=== PATIENT | female | born 1990 | race Two or more races ===

== ENCOUNTER 2019-07-12 12:15 | Inpatient (IN) | payer MEDICAID, OTHER ==
[~2019-07-12] VITALS: Ht 162.6 cm; Wt 82.6 kg
[2019-07-12] MEDS ORDERED: METF-960 PO (12:44)
[2019-07-12] MEDS ORDERED: LISI-661 PO (12:44)
[2019-07-12] MEDS ORDERED: EMPA25TA PO (12:44)
[2019-07-12] MEDS ORDERED: BUPR100 PO (12:44)
[2019-07-12] MEDS ORDERED: SERT100T12 PO (12:44)
[2019-07-12 13:50] LABS: BASOPHILS % (AUTO) 0.6 % (0.0-2.0); HEMATOCRIT 45.6 % (36-46); HEMOGLOBIN 14.7 g/dL (12.0-16.0); LYMPHOCYTES # (AUTO) 3.3 K/uL (1.0-4.8); LYMPHOCYTES % (AUTO) 30.2 % (22.0-44.0); MEAN CORPUSCULAR HEMOGLOBIN 26.6 pg (26.0-34.0); MEAN CORPUSCULAR HGB CONC 32.3 G/dL (31.0-37.0); MEAN CORPUSCULAR VOLUME 82 fL (80-100); MONOCYTES # (AUTO) 0.5 K/uL (0.1-1.0); MONOCYTES % (AUTO) 4.5 % (2.0-9.0); NEUTROPHILS % (AUTO) 63.7 % (40.0-70.0); PLATELET COUNT (AUTO) 277 K/uL (150-450); RED BLOOD CELL COUNT(AUTO) 5.54 MIL/uL (4.00-5.20); RED CELL DISTRIBUTION WIDTH 14.5 % (11.5-14.5)
[2019-07-12 13:59] LABS: ANION GAP 12 mmol/L (8-16); CALCIUM, TOTAL 9.6 mg/dL (8.8-10.5); CARBON DIOXIDE 24 mmol/L (22-29); CHLORIDE 102 mmol/L (98-107); CREATININE 0.66 mg/dL (0.60-1.30); GLOMERULAR FILTR. RATE CALC > 60 mL/min (>60); GLUCOSE,RANDOM 126 mg/dL (70-110); POTASSIUM 3.6 mmol/L (3.5-5.1); SODIUM SERUM 138 mmol/L (136-145); UREA NITROGEN, BLOOD 7 mg/dL (7-18)
[2019-07-12 14:04] LABS: AMPHET/METH SCREEN,URINE NEGATIVE (NEGATIVE); BARBITURATE SCREEN, URINE NEGATIVE (NEGATIVE); BENZODIAZEPINES SCREEN,URINE NEGATIVE (NEGATIVE); CANNABINOID SCREEN,URINE NEGATIVE (NEGATIVE); COCAINE SCREEN,URINE NEGATIVE (NEGATIVE); METHADONE SCREEN, URINE NEGATIVE (NEGATIVE); OPIATE SCREEN,URINE NEGATIVE (NEGATIVE); PHENCYCLIDINE SCREEN,URINE NEGATIVE (NEGATIVE)
[2019-07-12 14:10] LABS: ALANINE AMINOTRANSFERASE 23 U/L (12-78); ALKALINE PHOSPHATASE 66 U/L (46-116); ASPARTATE AMINOTRANSFERASE 17 U/L (15-37); BILIRUBIN,TOTAL 0.4 mg/dL (0.1-1.0); HCG,QUANTITATIVE < 1 mIU/mL (0-6); TOTAL PROTEIN, SERUM 8.1 g/dL (6.4-8.2)
[2019-07-12] MEDS ORDERED: ACETAMINOPHEN 500 MG TABLET PO ONE (14:30)
[2019-07-12] MEDS ORDERED: IBUPROFEN 600 MG TABLET PO ONE (17:45)
[2019-07-12] MEDS ORDERED: LORazepam 2 MG TABLET PO PRN (18:45)
[2019-07-12] MEDS ORDERED: HALOPERIDOL 5 MG TABLET PO PRN (18:45)
[2019-07-12] MEDS ORDERED: MAGNESIUM HYDROXIDE SUSPENSION 30 ML UDCUP PO PRN (20:30)
[2019-07-12] MEDS ORDERED: GuaiFENesin/D-METHORPHAN [SUGAR-FREE] 200-20MG/10 ML SYRUP UDCUP PO PRN (20:30)
[2019-07-12] MEDS ORDERED: ONDANSETRON HCL 4 MG TABLET PO PRN (20:30)
[2019-07-12] MEDS ORDERED: LOPERAMIDE HCL 2 MG CAPSULE PO PRN (20:30)
[2019-07-12] MEDS ORDERED: PETROLATUM,WHITE 28 GM JELLY TP PRN (20:30)
[2019-07-12] MEDS ORDERED: ACETAMINOPHEN 325 MG TABLET PO PRN (20:30)
[2019-07-12] MEDS ORDERED: MAG HYDROX/AL HYDROX/SIMETH ES 30 ML SUSPENSION UDCUP PO PRN (20:30)
[2019-07-12] MEDS ORDERED: CloNIDine HCL 0.1 MG TABLET PO PRN (20:30)
[2019-07-12] MEDS ORDERED: IBUPROFEN 400 MG TABLET PO PRN (20:30)
[2019-07-12] MEDS ORDERED: ALBUTEROL SULFATE HFA 90 MCG/PUFF 8 GM INHALER IH PRN (20:30)
[2019-07-12] MEDS ORDERED: DOCUSATE SODIUM 100 MG CAPSULE PO PRN (20:30)
[2019-07-12 20:41] VITALS: BP 153/89
[2019-07-13 05:41] LABS: GLUCOMETER DEV NAME(LOC) 3E.I; GLUCOSE,POINT OF CARE 132 MG/DL (70-110)
[2019-07-13] MEDS ORDERED: CloNIDine HCL 0.1 MG TABLET PO PRN (05:45)
[2019-07-13] MEDS ORDERED: GuaiFENesin/D-METHORPHAN [SUGAR-FREE] 200-20MG/10 ML SYRUP UDCUP PO PRN (05:45)
[2019-07-13] MEDS ORDERED: LOPERAMIDE HCL 2 MG CAPSULE PO PRN (05:45)
[2019-07-13] MEDS ORDERED: DOCUSATE SODIUM 100 MG CAPSULE PO PRN (05:45)
[2019-07-13] MEDS ORDERED: IBUPROFEN 400 MG TABLET PO PRN (05:45)
[2019-07-13] MEDS ORDERED: ALBUTEROL SULFATE HFA 90 MCG/PUFF 8 GM INHALER IH PRN (05:45)
[2019-07-13] MEDS ORDERED: ACETAMINOPHEN 325 MG TABLET PO PRN (05:45)
[2019-07-13] MEDS ORDERED: NICOTINE 14 MG/24 HOUR PATCH TD PRN (05:45)
[2019-07-13] MEDS ORDERED: MAG HYDROX/AL HYDROX/SIMETH ES 30 ML SUSPENSION UDCUP PO PRN (05:45)
[2019-07-13] MEDS ORDERED: MAGNESIUM HYDROXIDE SUSPENSION 30 ML UDCUP PO PRN (05:45)
[2019-07-13] MEDS ORDERED: PETROLATUM,WHITE 28 GM JELLY TP PRN (05:45)
[2019-07-13] MEDS ORDERED: ONDANSETRON HCL 4 MG TABLET PO PRN (05:45)
[2019-07-13] MEDS: MetFORMIN HCL 500 MG TABLET PO SCH (06:52)
[2019-07-13 07:54] LABS: CHOL/HDL RATIO 4.5 (3.9-5.7); THYROID STIMULATING HORMONE 2.42 uIU/mL (0.36-3.74)
[2019-07-13 08:02] LABS: HEMOGLOBIN A1C 7.2 % (4.5-6.2)
[2019-07-13 08:30] VITALS: BP 116/64
[2019-07-13] MEDS: LISINOPRIL 10 MG TABLET PO SCH (09:37)
[2019-07-13] MEDS: MULTIVITAMINS WITH MINERALS, THERAPEUTIC TABLET PO SCH (12:37)
[2019-07-13] MEDS: SERTRALINE HCL 100 MG TABLET PO SCH (12:37)
[2019-07-13] MEDS: BuPROPion HCL 100 MG SR TABLET PO SCH ×2 (12:37→17:12)
[2019-07-13 19:03] VITALS: BP 126/84
[2019-07-13] MEDS: ZOLPIDEM TARTRATE 10 MG TABLET PO PRN (21:39)
[2019-07-14 05:49] LABS: GLUCOMETER DEV NAME(LOC) 3E.I; GLUCOSE,POINT OF CARE 154 MG/DL (70-110)
[2019-07-14] MEDS: MetFORMIN HCL 500 MG TABLET PO SCH (06:58)
[2019-07-14 08:00] VITALS: BP 132/93
[2019-07-14] MEDS: BuPROPion HCL 100 MG SR TABLET PO SCH ×2 (08:36→16:31)
[2019-07-14] MEDS: SERTRALINE HCL 100 MG TABLET PO SCH (08:36)
[2019-07-14] MEDS: MULTIVITAMINS WITH MINERALS, THERAPEUTIC TABLET PO SCH (08:36)
[2019-07-14] MEDS: LISINOPRIL 10 MG TABLET PO SCH (08:36)
[2019-07-14 16:29] VITALS: BP 131/74
[2019-07-14 16:47] LABS: GLUCOMETER DEV NAME(LOC) 3E.I; GLUCOSE,POINT OF CARE 115 MG/DL (70-110)
[2019-07-14] MEDS: ZOLPIDEM TARTRATE 10 MG TABLET PO PRN (20:23)
[2019-07-15] MEDS: MetFORMIN HCL 500 MG TABLET PO SCH (06:54)
[2019-07-15] MEDS: MULTIVITAMINS WITH MINERALS, THERAPEUTIC TABLET PO SCH (09:39)
[2019-07-15] MEDS: LISINOPRIL 10 MG TABLET PO SCH (09:39)
[2019-07-15] MEDS: SERTRALINE HCL 100 MG TABLET PO SCH (09:39)
[2019-07-15] MEDS: BuPROPion HCL 100 MG SR TABLET PO SCH (09:39)
[2019-07-15 10:12] VITALS: BP 134/90
[2019-07-15] MEDS ORDERED: MULT-1239 PO (13:00)
[2019-07-15 16:58] LABS: GLUCOMETER DEV NAME(LOC) 3E.I; GLUCOSE,POINT OF CARE 123 MG/DL (70-110)
== END 2019-07-15 13:15 | disposition home or self-care (01) | DRG 751 ==
LOC: EMS 12:16 → 3EI 18:52
PROVIDERS: ADMIT Psychiatry & Neurology Child & Adolescent Psychiatry; ATTEND Psychiatry & Neurology Child & Adolescent Psychiatry
DX: F33.2 Major depressive disorder, recurrent severe without psychotic features (principal); R45.851 Suicidal ideations; E11.9 Type 2 diabetes mellitus without complications; F41.9 Anxiety disorder, unspecified; R00.0 Tachycardia, unspecified; G43.909 Migraine, unspecified, not intractable, without status migrainosus; G44.209 Tension-type headache, unspecified, not intractable; I10 Essential (primary) hypertension; Z88.1 Allergy status to other antibiotic agents
CPT/HCPCS: 83036; 84443; G0480